=== PATIENT | male | born 1975 | race African-American/Black ===

== ENCOUNTER 2019-02-13 09:13 | Emergency (ER) | payer OTHER ==
[2019-02-13] MEDS ORDERED: Ketorolac INJ* 60 MG/2 ML VIAL IM ONE (11:42)
[2019-02-13 12:12] VITALS: BP 131/78
--- NOTE | 2019-02-13 13:18 | ED ---
Lower Extremity - HPI Summary HPI Summary: Patient is a 43-year-old male presenting to the ED with right lower extremity erythema and swelling and pain. He states this began a few hours ago while at work. He denies any injury or known other tick bites. The area is to the anterior portion of the lower extremity just above the ankle. The area measures 3-4 cm diameter is slightly swollen, and is slight erythema. No warmth to the area. He has a history of diffuse muscle aches and tendinitis. He states pain radiates to the lower extremity just below the knee without erythema, warmth, but with pain. He states since arriving to the ED, symptoms have improved since elevating the extremity. Worse with ambulation, better with rest. - History of Current Complaint Chief Complaint: EDExtremityLower Stated Complaint: RIGHT LEG PAIN,COULDNT WALK THIS MORNING PER PT Time Seen by Provider: 02/13/19 10:40 Hx Obtained From: Patient Onset of Pain: Hours Onset/Duration: Hours Severity Initially: Mild Severity Currently: Mild Pain Intensity: 2 Pain Scale Used: 0-10 Numeric Location: Is Discrete @ - right lower extremity with small amount of swelling and erythema without signs of trauma or insect bite Associated Signs And Symptoms: Positive: Swelling, Redness. Negative: Fever, Weakness, Knee Pain, Other Aggravating Factor(s): Standing, Ambulation Alleviating Factor(s): Rest Able to Bear Weight: No Legs: 1 - right lower extremity with small amount of swelling and erythema without signs of trauma or insect bite - Allergies/Home Medications Allergies/Adverse Reactions: Allergies Allergy/AdvReac Type Severity Reaction Status Date / Time aspirin Allergy Swelling Verified 02/13/19 09:18 Of Face,Lips,& Throat PMH/Surg Hx/FS Hx/Imm Hx Previously Healthy: Yes - Immunization History Hx Pertussis Vaccination: No Immunizations Up to Date: Yes Infectious Disease History: No Infectious Disease History: Denies: Traveled Outside the [place] in Last 30 Days - Social History Occupation: Employed Full-time Lives: With Family Alcohol Use: Rare Hx Substance Use: No Substance Use Type: Reports: None Hx Tobacco Use: Yes Smoking Status (MU): Light Every Day Tobacco Smoker Review of Systems Constitutional: Negative Negative: Fever, Chills, Fatigue, Skin Diaphoresis Positive: Dental Pain Negative: Palpitations, Chest Pain Negative: Cough Genitourinary: Negative Positive: see HPI Positive: Myalgia - right lower extremity with plantar flexion. Negative: Arthralgia Positive: Rash, Other - erythema with small amount of swelling All Other Systems Reviewed And Are Negative: Yes Physical Exam Triage Information Reviewed: Yes Vital Signs On Initial Exam: Initial Vitals Temp Pulse Resp BP Pulse Ox 98.3 F 88 16 133/74 98 02/13/19 09:15 02/13/19 09:15 02/13/19 09:15 02/13/19 09:15 02/13/19 09:15 Vital Signs Reviewed: Yes Appearance: Positive: Well-Appearing, Well-Nourished Skin: Positive: Warm, Skin Color Reflects Adequate Perfusion, Other - right lower extremity with small amount of swelling and erythema without signs of trauma or insect bite Head/Face: Positive: Normal Head/Face Inspection Eyes: Positive: EOMI, KATYA Neck: Positive: Supple, No Lymphadenopathy Respiratory/Lung Sounds: Positive: Clear to Auscultation, Breath Sounds Present Cardiovascular: Positive: RRR, Pulses are Symmetrical in both Upper and Lower Extremities Musculoskeletal: Positive: Normal, Strength/ROM Intact, Pain @ - on palpation to the R lower extremity Neurological: Positive: Speech Normal Psychiatric: Positive: Affect/Mood Appropriate AVPU Assessment: Alert Diagnostics - Vital Signs Vital Signs Temp Pulse Resp BP Pulse Ox 02/13/19 12:07 98.2 F 86 16 131/78 99 02/13/19 09:15 98.3 F 88 16 133/74 98 - Laboratory Lab Statement: Any lab studies that have been ordered have been reviewed, and results considered in the medical decision making process. Lower Extremity Course/Dx - Course Course Of Treatment: During his treatment, the patient is evaluated for erythematous slightly swollen area to the right lower extremity. This does not appear to be a cellulitis and there is no evidence of a bug bite. He states he has been on his feet all day which worsened his symptoms over the course of the evening. Symptoms have improved since arriving to the ED. This appears to be a a tendinitis due to some pain to the area, worse with plantar flexion and dorsiflexion with no streaking up to the leg. He will be treated with Toradol in the ED and is given Toradol for home. Can't stand strict return precautions for any worsening symptoms, erythema, warmth or swelling to the area. - Diagnoses Provider Diagnoses: Tendinitis Discharge - Sign-Out/Discharge Documenting (check all that apply): Patient Departure Patient Received Moderate/Deep Sedation with Procedure: No - Discharge Plan Condition: Stable Disposition: HOME Prescriptions: Ketorolac TAB * [Toradol TAB *] 10 mg PO Q6H #16 tab Patient Education Materials: Tendinitis (ED) Forms: *School Release, *Work Release Referrals: Jacques Oakley MD [Primary Care Provider] - Additional Instructions: Toradol 4 times daily 4 days Do not take ibuprofen or other NSAIDs while taking this medication Begin your first dose of Toradol this afternoon around 4 PM He may take 1 more dose before bedtime Ice to the area Elevation If you develop any worsening symptoms, red streaking up the leg worsening pain or swelling, return to the ED - Billing Disposition and Condition Condition: STABLE Disposition: Home
== END 2019-02-13 12:07 | disposition home or self-care (01) ==
LOC: ED 09:13
DX: M77.9 Enthesopathy, unspecified (principal); R60.9 Edema, unspecified; F17.210 Nicotine dependence, cigarettes, uncomplicated; K08.89 Other specified disorders of teeth and supporting structures; Z88.6 Allergy status to analgesic agent
CPT/HCPCS: 96372; 99282; J1885

== ENCOUNTER 2019-05-26 07:21 | Emergency (ER) | payer OTHER ==
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
[2019-05-26 09:06] LABS: ABS Eosinophils 0.1 10^3/ul (0-0.6); ABS Lymphocytes 1.7 10^3/ul (1.0-4.8); ABS Monocytes 0.7 10^3/ul (0-0.8); ABS Neutrophils 4.8 10^3/ul (1.5-7.7); Eosinophil % 1.4 %; Hematocrit 43 % (42-52); Hemoglobin 14.2 g/dL (14.0-18.0); Lymphocyte % 22.8 %; Mean Corpuscular HGB Conc 33 g/dL (31-36); Mean Corpuscular Hemoglobin 30 pg (27-31); Mean Corpuscular Volume 91 fL (80-94); Mean Platelet Volume 8.1 fL (7.4-10.4); Nucleated Red Blood Cells % 0.1; Platelet Count 270 10^3/uL (150-450); Red Blood Count 4.68 10^6 /uL (4.18-5.48); Red Cell Distribution Width 13 % (10-15); White Blood Count 7.3 10^3/uL (3.5-10.8)
[2019-05-26 09:08] LABS: INR 0.98 (0.82-1.09)
[2019-05-26 09:17] LABS: Troponin I 0.01 ng/mL (<0.04)
[2019-05-26 09:18] LABS: ALT 22 U/L (7-52); AST 19 U/L (13-39); Albumin 4.3 g/dL (3.2-5.2); Albumin/Globulin Ratio 1.6 (1-3); Alkaline Phosphatase 62 U/L (34-104); Amylase 52 U/L (29-103); Anion Gap 7 mmol/L (2-11); BUN/Creatinine Ratio 11.5 (8-20); Blood Urea Nitrogen 12 mg/dL (6-24); CO2 Carbon Dioxide 26 mmol/L (22-32); Calcium 9.1 mg/dL (8.6-10.3); Chloride 104 mmol/L (101-111); Creatine Kinase 223 U/L (10-223); EGFR African American 93.9 (>60); EGFR Non-African American 77.6 (>60); Globulin 2.7 g/dL (2-4); Glucose 102 mg/dL (70-100); Sodium 137 mmol/L (135-145)
[2019-05-26 09:23] LABS: Urine Appearance Cloudy; Urine Bacteria Absent (Absent); Urine Bilirubin Negative (Negative); Urine Blood 1+ (Negative); Urine Color Yellow; Urine Glucose Negative (Negative); Urine Ketones Negative (Negative); Urine Nitrite Negative (Negative); Urine Protein Negative (Negative); Urine Red Blood Cell 1+(3-5/hpf) (Absent); Urine Specific Gravity 1.015 (1.010-1.030); Urine Squamous Epithelial Cell Present (Absent); Urine Urobilinogen Negative (Negative); Urine White Blood Cell Trace(0-5/hpf) (Absent)
[2019-05-26 09:30] LABS: Urine Benzodiazepine Screen None Detected (None Detect); Urine Opiates Screen None Detected (None Detect)
[2019-05-26 09:30] LABS: Alcohol < 10 mg/dL (<10)
[2019-05-26] MEDS ORDERED: Iohexol 300* (CONTRAST) 10 ML SDV IV ONE (10:17)
[2019-05-26] MEDS ORDERED: Morphine 10 MG/ML VIAL (1 ml) IV ONE (11:57)
[2019-05-26] MEDS ORDERED: Ondansetron INJ* 2 MG/ML VIAL IV ONE (11:57)
[2019-05-26] MEDS ORDERED: Morphine 4 MG/ML VIAL (1 ml) 4 MG/ML VIAL IV ONE (13:12)
[2019-05-26 14:09] VITALS: BP 149/89
== END 2019-05-26 14:07 | disposition home or self-care (01) ==
LOC: ED 07:21
DX: M54.2 Cervicalgia (principal); R07.89 Other chest pain; R10.9 Unspecified abdominal pain; M79.602 Pain in left arm; M79.601 Pain in right arm; M54.5 Low back pain; M25.522 Pain in left elbow; M25.561 Pain in right knee; M54.6 Pain in thoracic spine; R51 Headache; V47.5XXA Car driver injured in collision with fixed or stationary object in traffic accident, initial encounter; Z88.6 Allergy status to analgesic agent; F17.200 Nicotine dependence, unspecified, uncomplicated
CPT/HCPCS: 36415; 70450; 71045; 71260; 72125; 72128; 74177; 80053; 80307; 80320; 81003; 81015; 82150; 82550; 83605; 83690; 84484; 85025; 85610; 87086; 93005; 96374; 96375; 96376; 99283; G0480; J2270; J2405; Q9967

== ENCOUNTER 2019-06-17 19:27 | Emergency (ER) | payer OTHER ==
[2019-06-17 19:47] VITALS: BP 116/59
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
--- OUTSIDE RECORDS SUMMARY | 2019-06-18 01:29 | XMS REPORT | Continuity of Care Document ---
:1975 External Reference #:[id number] Author Name Jennifer Juares Care Team Providers Name Role Phone Giovany Harding MD Primary Care Physician Unavailable Payers Date Identification Numbers Payment Provider Subscriber Expires: 2015 Policy Number: [id number] [employer] Name: [id number] [address] PayID: [id number] [place] [address] Expires: 2015 Policy Number: [id number] [employer] Name: [id number] [address] PayID: [id number] [place] [address] Policy Number: [id number] [employer] Number: [id number] [address] Group Name: Medicaid Tanf/[place] [address] PayID: [id number] PayID: [id number] No Fault Osvaldo Rodriguez Problems Active Problems Provider Date Gastroesophageal reflux disease Jacques Oakley M.D. Onset: 11/22/2014 Epigastric pain Jacques Oakley M.D. Onset: 11/22/2014 Malaise and fatigue Jacques Oakley M.D. Onset: 11/22/2014 Sleep disorder Jacques Oakley M.D. Onset: 11/22/2014 Disorder of shoulder Jacques Oakley M.D. Onset: 01/21/2015 Diarrhea Jacques Oakley M.D. Onset: 01/21/2015 Chest pain Giovany Harding MD Onset: 06/13/2019 Skin sensation disturbance Giovany Harding MD Onset: 06/13/2019 Knee pain Giovany Harding MD Onset: 06/13/2019 Wrist joint pain Giovany Harding MD Onset: 06/13/2019 Arthralgia of the upper arm Giovany Harding MD Onset: 06/13/2019 Shoulder joint pain Giovany Harding MD Onset: 06/13/2019 Family History Date Family Member(s) Observation Comments Maternal Grandmother Hypertension Social History Type Date Description Comments Sex Unknown ETOH Use Denies alcohol use Tobacco Use Start: Unknown Patient is a current smokes cigars only. smoker, smokes every day Recreational Drug Use Denies Drug Use Allergies, Adverse Reactions, Alerts Active Allergies Reaction Severity Comments Date Aspirin Swells up Severe 11/22/2014 Medications Active Medications SIG Qnty Indications Ordering Provider Date Gabapentin 1 by mouth three 90caps R20.0 Giovany Harding MD 06/13/2019 100mg times a day Capsules Creatine before and after Unknown Powder work out Dhea 1 by mouth one Unknown 10mg Capsules time per day Amino Acids Complex Unknown Tablets History Medications No Active Medications Unknown 01/21/2015 - 01/21/2015 Tramadol HCL three times a 30tabs 726.19 [place] 01/21/2015 - 50mg day as needed Diana Oakley 06/12/2019 Tablets Omeprazole 1 by mouth in 30caps 530.81 [place] 01/21/2015 - 40mg am 1 hour Diana Oakley 06/12/[address] before eating No Active Medications Unknown 11/22/2014 - 11/22/2014 Omeprazole 1 by mouth in 30caps 530.81 Jacques 11/22/2014 - 40mg am 1 hour Diana Oakley 01/21/[address] before eating Vital Signs Date Vital Result Comment 06/13/2019 11:12am Weight 202.00 lb Heart Rate 88 /min BP Systolic 124 mmHg BP Diastolic 76 mmHg Respiratory Rate 16 /min Body Temperature 97.1 F Pain Level 8 O2 % BldC Oximetry 97 % 03/25/2015 3:07pm Height 68.50 inches 5'8.50" Weight 210.00 lb Heart Rate 88 /min BP Systolic Sitting 128 mmHg BP Diastolic Sitting 86 mmHg Body Temperature 98.2 F O2 % BldC Oximetry 98 % BMI (Body Mass Index) 31.5 kg/m2 02/06/2015 1:30pm Height 68.50 inches 5'8.50" Weight 221.50 lb Heart Rate 103 /min BP Systolic Sitting 120 mmHg BP Diastolic Sitting 78 mmHg O2 % BldC Oximetry 98 % BMI (Body Mass Index) 33.2 kg/m2 01/21/2015 1:11pm Height 68.50 inches 5'8.50" Weight 224.00 lb Heart Rate 86 /min BP Systolic Sitting 130 mmHg BP Diastolic Sitting 82 mmHg O2 % BldC Oximetry 96 % BMI (Body Mass Index) 33.6 kg/m2 11/22/2014 12:05pm Height 68.50 inches 5'8.50" Weight 209.00 lb Heart Rate 82 /min BP Systolic Sitting 100 mmHg BP Diastolic Sitting 60 mmHg Respiratory Rate 16 /min Body Temperature 97.5 F BMI (Body Mass Index) 31.3 kg/m2 Results Test Date Facility Test Result H/L Range Note CBC Auto 01/24/2015 [facility] White Blood 8.4 10^3/uL Normal 4.8-10.[address] [place] [address] [phone] Red Blood Count 4.56 10^6/uL Normal 4.0-5.4 Hemoglobin 14.1 g/dL Normal 14.0-18.0 Hematocrit 43 % Normal 42-52 Mean Corpuscular Volume 94 fL Normal 80-94 Mean Corpuscular Hemoglobin 31 pg Normal 27-31 Mean Corpuscular HGB Conc 33 g/dL Normal 31-36 Red Cell Distribution Width 13 % Normal 10.5-15 Platelet Count 258 10^3/uL Normal 150-450 Mean Platelet Volume 9 um3 Normal 7.4-10.4 Abs Neutrophils 4.1 10^3/uL Normal 1.5-7.7 Abs Lymphocytes 3.4 10^3/uL Normal 1.0-4.8 Abs Monocytes 0.7 10^3/uL Normal 0-0.8 Abs Eosinophils 0.2 10^3/uL Normal 0-0.6 Abs Basophils 0 10^3/uL Normal 0-0.2 Abs Nucleated RBC 0.01 10^3/uL Normal Granulocyte % 48.6 % Normal 38-83 Lymphocyte % 39.8 % Normal 25-47 Monocyte % 8.6 % Normal 1-9 Eosinophil % 2.7 % Normal 0-6 Basophil % 0.3 % Normal 0-2 Nucleated Red Blood Cells % 0.1 Normal Comp Metabolic 01/24/2015 [facility] Sodium 138 mmol/L Normal 133-[address] [place] [address] [phone] Potassium 3.9 mmol/L Normal 3.5-5.0 Chloride 105 mmol/L Normal 101-111 Co2 Carbon Dioxide 27 mmol/L Normal 22-32 Anion Gap 6 mmol/L Normal 2-11 Glucose 96 mg/dL Normal 70-100 Blood Urea Nitrogen 10 mg/dL Normal 6-24 Creatinine 0.97 mg/dL Normal 0.67-1.17 BUN/Creatinine Ratio 10.3 Normal 8-20 Calcium 9.2 mg/dL Normal 8.6-10.3 Total Protein 6.6 g/dL Normal 6.4-8.9 Albumin 4.3 g/dL Normal 3.2-5.2 Globulin 2.3 g/dL Normal 2-4 Albumin/Globulin Ratio 1.9 Normal 1-3 Total Bilirubin 0.60 mg/dL Normal 0.2-1.0 Alkaline Phosphatase 49 U/L Normal 34-104 Alt 38 U/L Normal 7-52 Ast 25 U/L Normal 13-39 Egfr Non- 85.7 Normal >60 Egfr 110.2 Normal >60 1 Laboratory 01/24/2015 [facility] TSH (Thyroid 0.25 Low 0.34- 5.60 test finding [address] Stimulating IU/[place] [address] Horm) [phone] Vitamin B12 01/24/2015 [facility] Vitamin B12 617 Normal 180- 914 [address] F[address] pg/[place] [address] [phone] Folate 9.05 ng/mL Normal >3.99 Laboratory 01/24/2015 [facility] PSA Screening 0.612 Normal 0- 4.000 test finding [address] ng/[place] [address] [phone] O&P Ova & 11/29/2014 [facility] Ova (SEE 3, 4 Parasites Full [address] Parasite NOTE) [place] [address] [place] Full [phone] Stool For 11/29/2014 [facility] Stool Occult (SEE [address] Blood NOTE) [place] [address] [phone] O&P Ova & 11/29/2014 [facility] Ova (SEE 6 Parasites Full [address] Parasite NOTE) [place] [address] [place] Full [phone] Laboratory 11/29/2014 [facility] Stool Culture (SEE 7 test finding [address] NOTE) [place] [address] [phone] 1 Because ethnic data is not always readily available, this report includes an eGFR for both -Americans and non- Americans. The National Kidney Disease Education Program (NKDEP) does not endorse the use of the MDRD equation for patients that are not between the ages of 18 and 70, are , have extremes of body size, muscle mass, or nutritional status, or are non- or non-. According to the National Kidney Foundation, irrespective of diagnosis, the stage of the disease is based on the level of kidney function: Stage Description GFR(mL/min/1.73 m(2)) 1 Kidney damage with normal or decreased GFR 90 2 Kidney damage with mild decrease in GFR 60-89 3 Moderate decrease in GFR 30-59 4 Severe decrease in GFR 15-29 5 Kidney failure <15 (or dialysis) 2 Normal Range 180 to 914 Indeterminate Range 145 to 180 Deficient Range <145 3 NO PLAIN CUP RECEIVED, UNABLE TO DO STOOL DESCRIPTION OR~HEMOCCULT 4 RUN DATE: 12/02/14 [facility] LAB LIVE PAGE 1 RUN TIME: [address] [facility], [place], [place] [address] Specimen Inquiry Name: OSVALDO RODRIGUEZ : [address]: Jacques Oakley MD Acct: [id number] Unit: [id number] AGE: 39 Location: [facility] Re11/29/14 SEX: M Status: REG REF SPEC: [id number] RICKY: 11/29/[address] [facility] [address]: Jacques Oakley MD REQ: [id number] RECD: 12/02/14 STATUS: RES _ SOURCE: STOOL SPDESC: ORDERED: Hemoccult, Stool Culture, O P (Full) COMMENTS: NO PLAIN CUP RECEIVED, UNABLE TO DO STOOL DESCRIPTION OR HEMOCCULT Verbal to CHAZ Alejandra ([facility]) by [id number] at 1248 on 12/02/14. Results read back accurately. QUERIES: Provider Requisition # [id number] Procedure Result Verified Site Stool Culture PENDING Stool Specimen Description Final 12/02/14- 1025 ML Test not performed Shiga Toxin 1 2 PENDING Stool Occult Blood Final 12/02/14- 1025 ML Test not performed O P: Giardia/Cryptospor Screen Final 12/02/14- 1446 ML Organism 1 Neg Cryptosporidium/Giardia Giardia and cryptosporidium antigen testing performed by enzyme immunoassay. The use of colonic washes, aspirates or other diluted sample types has not been established and could affect the performance of the assay. Stool samples contaminated with an oily or particulate base (eg. Barium, mineral oil etc.) could interfere with the test and are not recommended. CONTINUED ON NEXT PAGE * ML=Testing performed at Main Lab DEPARTMENT OF PATHOLOGY, [facility] [employer] [place], [place] [address] Kevon Espinoza M.D. Director [facility] # [id number] RUN DATE: 12/02/14 [facility] LAB LIVE PAGE 2 RUN TIME: 31[address] [facility] [employer] [place], [place] [address] Specimen Inquiry Patient: OSVALDO RODRIGUEZ [id number] (Continued) Specimen: [id number] Collected: 11/29/14 Received: 12/02/14-851 (Continued) Procedure Result Verified Site O P: Giardia/Cryptospor Screen Final (continued) 12/02/14- 1446 Ova Parasite [place] Full PENDING END OF REPORT * ML=Testing performed at Main Lab DEPARTMENT OF PATHOLOGY, [facility] [employer] [place] [address] Kevon Espinoza M.D. Director [facility] # [id number] RUN DATE: 12/02/14 [facility] LAB LIVE PAGE 1 RUN TIME: 10[address] [facility] [employer] [place], [place] [address] Specimen Inquiry Name: JENNIFEROSVALDO : [address]: Jacques Oakley MD Acct: [id number] Unit: [id number] AGE: 39 Location: [facility] Re11/29/14 SEX: M Status: REG REF SPEC: [id number] RICKY: 11/29/[address] [facility] [address]: Jacques Oakley MD REQ: [id number] RECD: 12/02/14 STATUS: RES _ SOURCE: STOOL SPDESC: ORDERED: Hemoccult, Stool Culture, O P (Full) COMMENTS: NO PLAIN CUP RECEIVED, UNABLE TO DO STOOL DESCRIPTION OR HEMOCCULT QUERIES: Provider Requisition # [id number] Procedure Result Verified Site Stool Culture PENDING Stool Specimen Description Final 12/02/14- 1025 ML Test not performed Shiga Toxin 1 2 PENDING Stool Occult Blood Final 12/02/14- 1025 ML Test not performed O P: Giardia/Cryptospor Screen PENDING Ova Parasite [place] Full PENDING END OF REPORT * ML=Testing performed at Main Lab DEPARTMENT OF PATHOLOGY, [address] [place] [address] Kevon Espinoza M.D. Director [facility] # [id number] RUN DATE: 12/03/14 [facility] LAB LIVE PAGE 1 RUN TIME: [address] [place] [address] Specimen Inquiry Name: OSVALDO RODRIGUEZ : [address]: Jacques Oakley MD Acct: [id number] Unit: [id number] AGE: 39 Location: [facility] Re11/29/14 SEX: M Status: REG REF SPEC: [id number] RICKY: 11/29/[address] [facility] [address]: Jacques Oakley MD REQ: [id number] RECD: 12/02/14 STATUS: RES _ SOURCE: STOOL SPDESC: ORDERED: Hemoccult, Stool Culture, O P (Full) COMMENTS: NO PLAIN CUP RECEIVED, UNABLE TO DO STOOL DESCRIPTION OR HEMOCCULT Verbal to CHAZ Alejandra ([facility]) by [id number] at 1248 on 12/02/14. Results read back accurately. QUERIES: Provider Requisition # [id number] Procedure Result Verified Site Stool Culture PENDING Stool Specimen Description Final 12/02/14- 1025 ML Test not performed Shiga Toxin 1 2 PENDING Stool Occult Blood Final 12/02/14- 1025 ML Test not performed O P: Giardia/Cryptospor Screen Final 12/02/14- 1446 ML Organism 1 Neg Cryptosporidium/Giardia Giardia and cryptosporidium antigen testing performed by enzyme immunoassay. The use of colonic washes, aspirates or other diluted sample types has not been established and could affect the performance of the assay. Stool samples contaminated with an oily or particulate base (eg. Barium, mineral oil etc.) could interfere with the test and are not recommended. CONTINUED ON NEXT PAGE * ML=Testing performed at Main Lab DEPARTMENT OF PATHOLOGY, [facility] [employer] [place], [place] [address] Kevon Espinoza M.D. Director [facility] # [id number] RUN DATE: 12/03/14 [facility] LAB LIVE PAGE 2 RUN TIME: [address] [facility] [employer] [place], [place] [address] Specimen Inquiry Patient: OSVALDO RODRIGUEZ [id number] (Continued) Specimen: [id number] Collected: 11/29/14 Received: 12/02/14 (Continued) Procedure Result Verified Site O P: Giardia/Cryptospor Screen Final (continued) 12/02/14- 1445 Ova Parasite [place] Full Final 12/03/14- 1435 ML Final Result No Ova Parasites seen by Ethyl Acetate Concentration No Cysts or Trophs Seen on Trichrome smear END OF REPORT * ML=Testing performed at Main Lab DEPARTMENT OF PATHOLOGY, [address] [place] [address] Kevon Espinoza M.D. Director [facility] # [id number] RUN DATE: 12/04/14 [facility] LAB LIVE PAGE 1 RUN TIME: [address] [place] [address] Specimen Inquiry Name: OSVALDO RODRIGUEZ : [address]: Jacques Oakley MD Acct: [id number] Unit: [id number] AGE: 39 Location: [facility] Re11/29/14 SEX: M Status: REG REF SPEC: [id number] RICKY: 11/29/14-[address]: Jacques Oakley MD REQ: [id number] RECD: 12/02/14 STATUS: COMP _ SOURCE: STOOL SPDESC: ORDERED: Hemoccult, Stool Culture, O P (Full) COMMENTS: NO PLAIN CUP RECEIVED, UNABLE TO DO STOOL DESCRIPTION OR HEMOCCULT Verbal to CHAZ Alejandra ([facility]) by [id number] at 1248 on 12/02/14. Results read back accurately. QUERIES: Provider Requisition # [id number] Procedure Result Verified Site Stool Culture Final 12/04/14- 1412 ML Result No enteric pathogens isolated Testing for Salmonella, Shigella, Aeromonas, Plesiomonas, Yersinia and Campylobacter are included in a Stool Culture. Vibrio spp not routinely tested for in a stool culture. If testing is desired, please request specifically when placing test order. Sensitivities not routinely performed on stool isolates, as antibiotics may prolong the carriage rate of bacteria. Please contact the microbiology lab if sensitivities are required. Stool Specimen Description Final 12/02/14- 1025 ML Test not performed Shiga Toxin 1 2 Final 12/04/14- 1418 ML Organism 1 Negative Shiga Toxin 1 2 CONTINUED ON NEXT PAGE * ML=Testing performed at Main Lab DEPARTMENT OF PATHOLOGY, [facility] [employer] [place] [address] Kevon Espinoza M.D. Director [facility] # [id number] RUN DATE: 12/04/14 [facility] LAB LIVE PAGE 2 RUN TIME: [address] [facility] [employer] [place], [place] [address] Specimen Inquiry Patient: OSVALDO RODRIGUEZ [id number] (Continued) Specimen: [id number] Collected: 11/29/14-799 Received: 12/02/14-851 (Continued) Procedure Result Verified Site Shiga Toxin 1 2 Final (continued) 12/04/14- 1418 Immunochromatographic Assay Stool Occult Blood Final 12/02/14- 1025 ML Test not performed O P: Giardia/Cryptospor Screen Final 12/02/14- 1446 ML Organism 1 Neg Cryptosporidium/Giardia Giardia and cryptosporidium antigen testing performed by enzyme immunoassay. The use of colonic washes, aspirates or other diluted sample types has not been established and could affect the performance of the assay. Stool samples contaminated with an oily or particulate base (eg. Barium, mineral oil etc.) could interfere with the test and are not recommended. Ova Parasite [place] Full Final 12/03/14- 1436 ML Final Result No Ova Parasites seen by Ethyl Acetate Concentration No Cysts or Trophs Seen on Trichrome smear END OF REPORT * ML=Testing performed at Main Lab DEPARTMENT OF PATHOLOGY, [address] [place] [address] Kevon Espinoza M.D. Director [facility] # [id number] Encounters Type Date Location Provider Dx Diagnosis Office Visit 03/25/2015 [facility] Internal Jacques Oakley, 726.19 Shoulder Disorders 3:00p Medicine - Suite M.D. Other Spec R 787.91 Diarrhea 719.41 Pain Joint Shoulder Region Office Visit 02/06/2015 2:00p [facility] Internal Jacques Oakley, 726.19 Shoulder Medicine - M.D. Disorders Other Suite R Spec 530.81 Esophageal Reflux 719.41 Pain Joint Shoulder Region Office Visit 01/21/2015 1:20p [facility] Internal Jacques Oakley, 530.81 Esophageal Medicine - M.D. Reflux Suite R 726.19 Shoulder Disorders Other Spec 787.91 Diarrhea 719.41 Pain Joint Shoulder Region Office Visit 11/22/2014 11:20a [facility] Internal Jacques Oakley, 530.81 Esophageal Medicine - M.D. Reflux Ccmob 789.06 Pain Abdominal Epigastric 780.79 Malaise And Fatigue Other 307.49 Sleep Disorder Other V77.91 Screening For Lipoid Disorders V76.44 Screening For Malig Roberto Prostate 787.91 Diarrhea Plan of Treatment Future Appointment(s):07/04/2019 1:00 pm - Giovany Harding MD at [facility] Internal Medicine - [address] - Giovany Harding, MDM25.511 Pain in right shoulderFollow up:2-3 weeks.M25.521 Pain in right rhhbmO89.531 Pain in right tlfvfG06.561 Pain in right kneeR20.0 Anesthesia of skinNew Medication: Gabapentin 100 mg - 1 by mouth three times a dayR53.1 WeaknessNew Xrays:MRI Cervical Spine Wo, Ordered: 06/13/19Referral:Ruth Perea MD, Sports Medicine: Family prR07.9 Chest pain, sebrvmwrbbkX99.7 Diarrhea, unspecified
== END 2019-06-17 20:15 | disposition home health service (06) ==
LOC: UCCORT 19:27
DX: R10.31 Right lower quadrant pain (principal); R10.32 Left lower quadrant pain; Z87.891 Personal history of nicotine dependence
CPT/HCPCS: 99212; G0463

== ENCOUNTER 2019-06-17 21:19 | Emergency (ER) | payer OTHER ==
[2019-06-17 21:35] VITALS: BP 132/72
== END 2019-06-17 22:37 | disposition left against medical advice (07) ==
LOC: ED 21:19
DX: R10.9 Unspecified abdominal pain (principal); Z53.21 Procedure and treatment not carried out due to patient leaving prior to being seen by health care provider